=== PATIENT | male | born 1965 | race Caucasian/White ===

== ENCOUNTER 2017-01-18 11:11 | Emergency (ER) | payer OTHER ==
[~2017-01-18] VITALS: Ht 175.3 cm; Wt 123.0 kg
[~2017-01-18 11:11] MED LIST: ALEVE220 MG PO; FLEXERIL10 MG PO; NOHOMEMEDS; VICODIN,LORT1 TABLET PO
[2017-01-18] MEDS ORDERED: NORCO 5/3251 TABLET PO (13:38)
[2017-01-18] MEDS ORDERED: PREDNISONE50 MG PO (13:38)
[2017-01-18] MEDS ORDERED: TORADOL10 MG PO (13:55)
[2017-01-18 14:09] VITALS: BP 163/92
== END 2017-01-18 14:10 | disposition home or self-care (01) ==
LOC: EME 11:11
DX: M54.16 Radiculopathy, lumbar region (principal); G80.9 Cerebral palsy, unspecified; K21.9 Gastro-esophageal reflux disease without esophagitis
CPT/HCPCS: 99281; 99283; J1885